=== PATIENT | female | born 1945 | race Caucasian/White ===

== ENCOUNTER → 2020-08-28 12:35 | Outpatient (BNVA) | payer OTHER, SELFPAY | PROVIDERS: PCP Internal Medicine; Referring Provider Internal Medicine; Visit Provider Surgery | DX: D17.1 Benign lipomatous neoplasm of skin and subcutaneous tissue of trunk (principal); D17.23 Benign lipomatous neoplasm of skin and subcutaneous tissue of right leg | CPT/HCPCS: 99202 ==

== ENCOUNTER 2020-09-05 08:57 | Outpatient (REF) | payer OTHER, SELFPAY ==
[2020-09-05 09:12] VITALS: BP 179/86; PULSE 76; RESP 20; TEMP 36.7; O2SAT 96
[2020-09-05 09:14] VITALS: BMI 36.3
[2020-09-05 10:15] VITALS: O2SAT 98
[2020-09-05 10:55] VITALS: BP 172/87; PULSE 91; RESP 20; O2SAT 96
--- NOTE | 2020-09-05 11:01 | MHC.SHP ---
Pre-Procedural Eval Section B Chief Complaint: lipomatous Allergies: Allergies Allergy/AdvReac Type Severity Reaction Status Date / Time blue dye Allergy Severe Angioedema Verified 08/28/20 13:45 methyclothiazide Allergy Severe Anaphylaxis Verified 08/28/20 13:45 methylprednisolone Allergy Severe Anaphylaxis Verified 08/28/20 13:45 oxycodone [From OxyContin] Allergy Severe Anaphylaxis Verified 08/28/20 13:45 Plan I have reviewed the history and physical and performed a pertinent physical examination on my patient. No changes have occurred unless specified.
--- NOTE | 2020-09-05 11:01 | PM.OP ---
Brief Operative Note Date of Service: 09/05/20 Pre-op diagnosis: Painful lipomas of the right anterior thigh and the left upper quadrant abdominal wall Post-op diagnosis: same Procedure: Excision lipomas of the right anterior thigh and the left upper quadrant abdominal wall with layered closure size of the lipomas were 3 cm in size each Implants: None Surgeon: Jesusita Hunt MD Anesthesia: local Estimated blood loss (mL): 3 Pathology: other (Lipomas of the right thigh and left abdominal wall) Condition: stable Disposition: same day
--- NOTE | 2020-09-05 11:23 | OP_ITS ---
SURGEON: Jesusita Hunt MD PREOPERATIVE DIAGNOSIS: POSTOPERATIVE DIAGNOSIS: PROCEDURE PERFORMED: Excision of lipomas of the right anterior mid thigh and the left upper quadrant abdominal wall with layered closure. Size of the lipomas were 3 cm each. ESTIMATED BLOOD LOSS: COMPLICATIONS: None. ANESTHESIA: Local anesthetic. ASSISTANTS: None. SPECIMENS: Lipoma of the right anterior thigh and the left upper quadrant abdominal wall. PREPROCEDURE DIAGNOSIS: Painful lipoma of the left upper quadrant abdominal wall and the right anterior mid thigh. CONDITION: Postprocedure, good. DESCRIPTION OF PROCEDURE: The patient was brought into the minor procedure room, placed on the bed in supine position. A safety time-out was performed. A marking pen was used to milagros the planned incision site on the right anterior mid thigh and the left upper quadrant abdominal wall. The areas to be excised were cleaned with Betadine and then anesthetized using a mixture of 1% lidocaine with epinephrine, 0.25% Marcaine plain. Attention was turned initially to excision of the right anterior thigh lipoma. A #15 scalpel was used to make a 2.5 cm transverse incision overlying the palpable lipoma. Subcutaneous tissues were dissected down to the level of the lipoma. The lipoma was easy to dissect out using a finger. We passed this off the field along with a smaller component of the lipoma for pathology. The wound was inspected and was hemostatic. We closed the deep dermal tissues using several interrupted 3-0 Vicryl sutures. Overlying skin was closed with 4-0 Monocryl subcuticular stitch. The same attention was taken to excise the lipoma of the left superior abdominal wall. We used a #15 scalpel to make an incision. We dissected the subcutaneous tissues down until the palpable lipoma was felt. We were able to dissect out with a finger. The lipoma was passed off the field along with a smaller component of the lipoma. We evaluated the incision and was hemostatic. We closed the deep dermal tissues using 3-0 Vicryl sutures. Overlying skin was closed with 4-0 Monocryl subcuticular stitch. We cleaned and dried the skin and applied Mastisol, Steri-Strips to the incision, a dry sterile dressing, and Tegaderm. The patient tolerated the procedure well and was sent home in stable condition. MD DIMITRI Recinos/CHRISTINAL / [id number]
== END 2020-09-05 08:58 | disposition home or self-care (01) ==
LOC: HO.MS 08:57
PROVIDERS: Visit Provider Surgery
PROC: (CPT 27337; principal; 2020-09-05 09:40)
DX: D17.23 Benign lipomatous neoplasm of skin and subcutaneous tissue of right leg (principal); D17.1 Benign lipomatous neoplasm of skin and subcutaneous tissue of trunk; J44.9 Chronic obstructive pulmonary disease, unspecified; I10 Essential (primary) hypertension; E11.9 Type 2 diabetes mellitus without complications; Z85.3 Personal history of malignant neoplasm of breast; Z92.3 Personal history of irradiation; Z88.8 Allergy status to other drugs, medicaments and biological substances
CPT/HCPCS: 27337; 22903; 88304

== ENCOUNTER → 2020-09-20 14:22 | Outpatient (BNVA) | payer OTHER, SELFPAY | PROVIDERS: PCP Internal Medicine; Visit Provider Surgery | DX: D17.9 Benign lipomatous neoplasm, unspecified (principal); Z91.09 Other allergy status, other than to drugs and biological substances; Z88.5 Allergy status to narcotic agent; Z88.8 Allergy status to other drugs, medicaments and biological substances; D17.24 Benign lipomatous neoplasm of skin and subcutaneous tissue of left leg | CPT/HCPCS: 99212 ==